=== PATIENT | female | born 1995 | race Caucasian/White ===

== ENCOUNTER 2018-10-05 10:41 | Emergency (ER) | payer OTHER ==
[2018-10-05 10:54] VITALS: BP 121/74
[2018-10-05] MEDS ORDERED: diphenhydrAMINE INJ 50 MG/ML VIAL IM STA (10:59)
--- NOTE | 2018-10-05 11:02 | ED Physician Documentation ---
PD HPI SKIN - Stated complaint Stated Complaint: RASH ALL OVER BODY - Chief complaint Chief Complaint: Allergic Rx - History obtained from History obtained from: Patient, Family () - History of Present Illness Timing - onset: Today Timing - details: Still present Location: [facility] Associated symptoms: Other (itching) Similar symptoms before: Has not had sx before - Additional information Additional information: The patient is a 23-year-old female who presents with rash that she first noticed when she awoke this morning. There is associated pruritus. She denies sore throat or shortness of breath. She denies history of similar symptoms in the past. She has been taking no medications, and is unaware of any change in diet, clothing, detergents, or other substances unusual to her. She did travel to her home in [place] last week where she spent a day at the [employer]. 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 : None HEENT: None Psych: None Musculoskeletal: None Derm: None - Past Surgical History Past Surgical History: No - Present Medications Home Medications: Ambulatory Orders Medication Instructions Recorded Confirmed diphenhydrAMINE [Benadryl] 25 - 50 mg PO Q4-6H PRN #30 capsule 10/05/18 hydrOXYzine pamoate [Hydroxyzine 1 - 2 tab PO Q6H PRN #20 capsule 10/06/18 Pamoate] predniSONE [Deltasone] 60 mg PO DAILY 5 Days tablet 10/06/18 - Allergies Allergies/Adverse Reactions: Allergies Allergy/AdvReac Type Severity Reaction Status Date / Time No Known Drug Allergies Allergy Verified 10/06/18 21:40 - Social History Does the pt smoke?: No Smoking Status: Never smoker PD ED PE NORMAL - Vitals Vital signs reviewed: Yes (normal) - General General: Alert and oriented X 3, Well developed/nourished - HEENT HEENT: Atraumatic, EOMI, Moist mucous membranes, Pharynx benign - Neck Neck: Supple, no meningeal sign, No adenopathy - Cardiac Cardiac: RRR, No murmur - Respiratory Respiratory: No respiratory distress, Clear bilaterally - Abdomen Abdomen: Soft, Non tender - Back Back: No CVA TTP - Derm Derm: Other (Patchy, urticarial rash involving the trunk and all extremities, particularly proximal thighs. There is lesser involvement of the neck and face.) - Extremities Extremities: No edema, No calf tenderness / cord - Neuro Neuro: Alert and oriented X 3, No motor deficit, No sensory deficit Results - Vitals Vitals: Oxygen O2 Source Room air PD MEDICAL DECISION MAKING - ED course Complexity details: re-evaluated patient, considered differential, d/w patient, d/w family ED course: The patient presents with an urticarial type rash. This is most likely due to an immune response to an as yet unknown allergen. Her clinic call presentation does not suggest an acute infectious process. Treatment in the emergency department included administration of diphenhydramine 50 mg orally. I discussed with her and her symptomatic treatment, outpatient follow-up, as well as potentially worrisome signs or symptoms that should prompt reevaluation in the emergency department. Departure - Departure Disposition: 01 Home, Self Care Clinical Impression: Urticaria Condition: Stable Instructions: ED Urticaria Follow-Up: Vonnie Dominguez ARNP [Primary Care Provider] - Prescriptions: diphenhydrAMINE [Benadryl] 25 - 50 mg PO Q4-6H PRN #30 capsule PRN Reason: Itching Comments: You can use Benadryl as prescribed if needed for itching. Follow-up with your primary physician within 1 week. Call to schedule an appointment. Return to the emergency department if you develop increasing rash or itching, difficulty swallowing, shortness of breath, or otherwise worsening symptoms. Discharge Date/Time: 10/05/18 11:52
== END 2018-10-05 11:52 | disposition home or self-care (01) ==
LOC: ED 10:41
DX: L50.9 Urticaria, unspecified (principal)
CPT/HCPCS: 96372; 99283; J1200

== ENCOUNTER 2018-10-06 21:33 | Emergency (ER) | payer OTHER ==
[2018-10-06] MEDS ORDERED: DEXAMETHASONE 10 MG/ML VIAL IVP STA (22:01)
--- NOTE | 2018-10-06 22:06 | ED Physician Documentation ---
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 She does not remember any tick bites but there was a possible mosquito bite. She got back about a week ago. Over the last few days she developed an intensely itchy rash on the face and body. 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 HEENT: None Psych: None Musculoskeletal: None Derm: None - Past Surgical History Past Surgical History: No - Present Medications Home Medications: Ambulatory Orders Medication Instructions Recorded Confirmed diphenhydrAMINE [Benadryl] 25 - 50 mg PO Q4-6H PRN #30 capsule 10/05/18 hydrOXYzine pamoate [Hydroxyzine 1 - 2 tab PO Q6H PRN #20 capsule 10/06/18 Pamoate] predniSONE [Deltasone] 60 mg PO DAILY 5 Days tablet 10/06/18 - Allergies Allergies/Adverse Reactions: Allergies Allergy/AdvReac Type Severity Reaction Status Date / Time No Known Drug Allergies Allergy Verified 10/06/18 21:40 - Social History Does the pt smoke?: No Smoking Status: Never smoker Does the pt drink ETOH?: Yes Does the pt have substance abuse?: No - POLST Patient has POLST: No PD ED PE NORMAL - Vitals Vital signs reviewed: Yes - General General: Alert and oriented X 3, No acute distress - HEENT HEENT: Other (Modest redness of the tonsillar pillars without exudates) - Neck Neck: Supple, no meningeal sign, No bony TTP - Cardiac Cardiac: RRR, No murmur - Respiratory Respiratory: No respiratory distress, Clear bilaterally - Abdomen Abdomen: Normal bowel sounds, Soft, Non tender - Derm Derm: Other (She is a widespread intense erythematous macular rash which is particularly impressive on the legs and face, but is also mildly present on the palms and soles.) - Neuro Neuro: Alert and oriented X 3, Normal speech Results - Vitals Vitals: Vital Signs - 24 hr 10/06/18 10/06/18 10/06/18 21:37 21:47 23:03 Temperature 37.1 C Heart Rate 137 H 118 H 111 H Respiratory 16 14 17 Rate Blood Pressure 99/69 115/78 110/73 O2 Saturation 98 100 99 Oxygen O2 Source Room air - Labs Labs: Laboratory Tests 10/06/18 10/06/18 10/06/18 21:58 22:15 22:15 WBC 13.3 H RBC 4.71 Hgb 14.3 Hct 41.3 MCV 87.7 MCH 30.4 MCHC 34.6 RDW 12.0 Plt Count 213 MPV 12.0 H Neut # (Auto) 11.9 H Lymph # (Auto) 1.1 L [place] # (Auto) 0.2 Eos # (Auto) 0.0 Baso # (Auto) 0.0 Absolute Nucleated RBC 0.00 Nucleated RBC % 0.0 Sodium Potassium Chloride Carbon Dioxide Anion Gap BUN Creatinine Estimated GFR (MDRD) Glucose Calcium Total Bilirubin AST ALT Alkaline Phosphatase Total Protein Albumin Globulin Albumin/Globulin Ratio Lipase Infectious [place] Assay NEGATIVE Group A Strep Rapid Negative 10/06/18 22:15 WBC RBC Hgb Hct MCV MCH MCHC RDW Plt Count MPV Neut # (Auto) Lymph # (Auto) [place] # (Auto) Eos # (Auto) Baso # (Auto) Absolute Nucleated RBC Nucleated RBC % Sodium 135 Potassium 3.2 L Chloride 100 L Carbon Dioxide 23 Anion Gap 12.0 BUN 14 Creatinine 0.8 Estimated GFR (MDRD) 87 L Glucose 142 H Calcium 9.2 Total Bilirubin 1.7 H AST 22 ALT 13 Alkaline Phosphatase 45 Total Protein 7.2 Albumin 4.2 Globulin 3.0 Albumin/Globulin Ratio 1.4 Lipase 23 Infectious [place] Assay Group A Strep Rapid PD MEDICAL DECISION MAKING - ED course ED course: 23-year-old woman presents with intensely itchy rash but associated with some other nonspecific symptoms such as myalgias and a low-grade fever at home. She is afebrile and well-appearing here but the rash is pretty impressive. Bacterial illnesses such as [place] spotted fever are considered, however she is not thrombocytopenic and in this patient's case the rash proceeded other symptoms of illness. Lyme is a possibility but unlikely, will send out serologies. Could be viral, or autoimmune such as adult onset stills disease. We will trial some steroids and she will follow-up closely. Departure - Departure Disposition: Home, Self Care Clinical Impression: Rash and nonspecific skin eruption, Myalgia Condition: Good Record reviewed to determine appropriate education?: Yes Instructions: ED Erythema Multiforme Prescriptions: hydrOXYzine pamoate [Hydroxyzine Pamoate] 1 - 2 tab PO Q6H PRN #20 capsule PRN Reason: Itching predniSONE [Deltasone] 60 mg PO DAILY 5 Days tablet Comments: Return to ED tomorrow if worse for reevaluation If symptoms are persistent recheck with your pcp, consider rheumatology referral.
[2018-10-06 22:32] LABS: BASOPHILS % (AUTO) 0.2 %; EOSINOPHILS % (AUTO) 0.3 %; HGB - HEMOGLOBIN 14.3 g/dL (12.0-16.0); LYMPHOCYTES # (AUTO) 1.1 10^3/uL (1.5-3.5); LYMPHOCYTES % (AUTO) 8.2 %; MEAN CORPUSCULAR HEMOGLOBIN 30.4 pg (27.0-31.0); MEAN CORPUSCULAR HGB CONC 34.6 g/dL (32.0-36.0); MEAN CORPUSCULAR VOLUME 87.7 fL (81.0-99.0); MONOCYTES # (AUTO) 0.2 10^3/uL (0.0-1.0); MONOCYTES % (AUTO) 1.4 %; NEUTROPHILS # (AUTO) 11.9 10^3/uL (1.5-6.6); NEUTROPHILS % (AUTO) 89.7 %; PLT - PLATELET COUNT 213 10^3/uL (130-450); RED BLOOD COUNT 4.71 10^6/uL (4.20-5.40); WHITE BLOOD COUNT 13.3 x10^3/uL (4.8-10.8)
[2018-10-06 22:45] LABS: ALBUMIN 4.2 g/dL (3.2-5.5); ALBUMIN/GLOBULIN RATIO 1.4 (1.0-2.2); BILIRUBIN,TOTAL 1.7 mg/dL (0.2-1.0); CALCIUM 9.2 mg/dL (8.5-10.3); CREATININE 0.8 mg/dL (0.4-1.0); TOTAL PROTEIN 7.2 g/dL (6.7-8.2)
[2018-10-06 23:03] VITALS: BP 110/73
[2018-10-06] MEDS ORDERED: hydrOXYzine PAMOATE 25 MG CAPSULE PO STA (23:08)
[2018-10-10 20:17] LABS: 18 KD (IGG) BAND NON-REACTIVE; 23 KD (IGG) BAND NON-REACTIVE; 23 KD (IGM) BLOT NON-REACTIVE; 28 KD (IGG) BAND NON-REACTIVE; 30 KD (IGG) BAND NON-REACTIVE; 39 KD (IGG) BAND NON-REACTIVE; 39 KD (IGM) BLOT NON-REACTIVE; 41 KD (IGG) BAND REACTIVE; 41 KD (IGM) BLOT NON-REACTIVE; 45 KD (IGG) BAND NON-REACTIVE; 58 KD (IGG) BAND NON-REACTIVE; 66 KD (IGG) BAND NON-REACTIVE; 93 KD (IGG) BAND REACTIVE
== END 2018-10-06 23:22 | disposition home or self-care (01) ==
LOC: ED 21:33
DX: R21 Rash and other nonspecific skin eruption (principal); M79.10 Myalgia, unspecified site
CPT/HCPCS: 36415; 80053; 83690; 85025; 86308; 86617; 87070; 87430; 96374; 99283; 99284; A9270

== ENCOUNTER 2018-10-13 21:41 | Emergency (ER) | payer OTHER ==
[2018-10-13 22:22] LABS: BASOPHILS % (AUTO) 0.3 %; EOSINOPHILS # (AUTO) 0.2 10^3/uL (0.0-0.7); EOSINOPHILS % (AUTO) 2.2 %; HGB - HEMOGLOBIN 13.6 g/dL (12.0-16.0); LYMPHOCYTES # (AUTO) 3.9 10^3/uL (1.5-3.5); LYMPHOCYTES % (AUTO) 45.5 %; MEAN CORPUSCULAR HEMOGLOBIN 29.8 pg (27.0-31.0); MEAN CORPUSCULAR HGB CONC 33.4 g/dL (32.0-36.0); MEAN CORPUSCULAR VOLUME 89.1 fL (81.0-99.0); MONOCYTES # (AUTO) 0.6 10^3/uL (0.0-1.0); MONOCYTES % (AUTO) 6.5 %; NEUTROPHILS # (AUTO) 3.9 10^3/uL (1.5-6.6); PLT - PLATELET COUNT 407 10^3/uL (130-450); RED BLOOD COUNT 4.57 10^6/uL (4.20-5.40); RED CELL DISTRIBUTION WIDTH 12.1 % (12.0-15.0); WHITE BLOOD COUNT 8.6 x10^3/uL (4.8-10.8)
[2018-10-13 22:41] LABS: ALBUMIN 4.1 g/dL (3.2-5.5); ALBUMIN/GLOBULIN RATIO 1.4 (1.0-2.2); ALKALINE PHOSPHATASE 49 IU/L (42-121); ALT ALANINE AMINOTRANSFERASE 12 IU/L (10-60); AST ASPARTATE AMINOTRANSFERASE 12 IU/L (10-42); BILIRUBIN,TOTAL 0.5 mg/dL (0.2-1.0); BUN - BLOOD UREA NITROGEN 13 mg/dL (6-20); CALCIUM 9.2 mg/dL (8.5-10.3); CARBON DIOXIDE - CO2 26 mmol/L (21-32); CHLORIDE 102 mmol/L (101-111); CREATININE 0.7 mg/dL (0.4-1.0); GFR - MDRD 102 (>89); GLUCOSE 101 mg/dL (70-100); LIPASE 38 U/L (22-51); SODIUM 141 mmol/L (135-145); TOTAL PROTEIN 7.1 g/dL (6.7-8.2)
[2018-10-13 22:42] LABS: CRP - C-REACTIVE PROTEIN < 1.0 mg/dL (0-1.0)
[2018-10-13] MEDS ORDERED: predniSONE 20 MG TABLET PO STA (22:48)
[2018-10-13] MEDS ORDERED: DOXEPIN 10 MG CAPSULE PO STA (22:48)
--- NOTE | 2018-10-13 22:51 | ED Physician Documentation ---
PD HPI SKIN - Stated complaint Stated Complaint: FACIAL SWELL/RASH - Chief complaint Chief Complaint: Allergic Rx - History obtained from History obtained from: Patient - History of Present Illness Timing - onset: Today Location: [facility] (23-year-old woman who was seen recently for a rash. Subsequent to that Lyme testing was negative. She actually got pretty much completely better on steroids but now that the steroids are done she had a recurrence today of incredibly itchy rash especially on the arms and posterior thighs and back, with some facial swelling but no respiratory symptoms. 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 HEENT: None Psych: None Musculoskeletal: None Derm: None - Past Surgical History Past Surgical History: No - Present Medications Home Medications: Ambulatory Orders Medication Instructions Recorded Confirmed diphenhydrAMINE [Benadryl] 25 - 50 mg PO Q4-6H PRN #30 capsule 10/05/18 RX: predniSONE [Deltasone] 60 mg PO DAILY 5 Days tablet 10/06/18 hydrOXYzine pamoate [Hydroxyzine 1 - 2 tab PO Q6H PRN #20 capsule 10/06/18 Pamoate] RX: Doxepin HCl 10 mg PO TID PRN #60 capsule 10/13/18 RX: predniSONE [Deltasone] 40 mg PO DAILY #13 tablet 10/13/18 - Allergies Allergies/Adverse Reactions: Allergies Allergy/AdvReac Type Severity Reaction Status Date / Time No Known Drug Allergies Allergy Verified 10/13/18 21:52 - Social History Does the pt smoke?: No Smoking Status: Never smoker Does the pt drink ETOH?: Yes Does the pt have substance abuse?: No - POLST Patient has POLST: No PD ED PE NORMAL - Vitals Vital signs reviewed: Yes - General General: Alert and oriented X 3, No acute distress - HEENT HEENT: Pharynx benign - Derm Derm: Other (Hives with dermatographia especially in the anterior forearms trunk and legs. At this point it spares the palms and soles unlike last time.) - Neuro Neuro: Alert and oriented X 3, Normal speech Results - Vitals Vitals: Vital Signs - 24 hr 10/13/18 10/13/18 21:49 23:15 Temperature 36.9 C 38.6 C H Heart Rate 96 87 Respiratory 16 19 Rate Blood Pressure 138/98 H 130/70 O2 Saturation 100 99 Oxygen O2 Source Room air - Labs Labs: Laboratory Tests 10/13/18 10/13/18 10/13/18 22:15 22:15 22:15 WBC 8.6 RBC 4.57 Hgb 13.6 Hct 40.7 MCV 89.1 MCH 29.8 MCHC 33.4 RDW 12.1 Plt Count 407 MPV 10.0 Neut # (Auto) 3.9 Lymph # (Auto) 3.9 H [place] # (Auto) 0.6 Eos # (Auto) 0.2 Baso # (Auto) 0.0 Absolute Nucleated RBC 0.00 Nucleated RBC % 0.0 ESR 11 Sodium Potassium Chloride Carbon Dioxide Anion Gap BUN Creatinine Estimated GFR (MDRD) Glucose Calcium Total Bilirubin AST ALT Alkaline Phosphatase C-Reactive Protein Total Protein Albumin Globulin Albumin/Globulin Ratio Lipase Rheumatoid Factor NEGATIVE Infectious [place] Assay 10/13/18 10/13/18 22:15 22:15 WBC RBC Hgb Hct MCV MCH MCHC RDW Plt Count MPV Neut # (Auto) Lymph # (Auto) [place] # (Auto) Eos # (Auto) Baso # (Auto) Absolute Nucleated RBC Nucleated RBC % ESR Sodium 141 Potassium 3.7 Chloride 102 Carbon Dioxide 26 Anion Gap 13.0 BUN 13 Creatinine 0.7 Estimated GFR (MDRD) 102 Glucose 101 H Calcium 9.2 Total Bilirubin 0.5 AST 12 ALT 12 Alkaline Phosphatase 49 C-Reactive Protein < 1.0 Total Protein 7.1 Albumin 4.1 Globulin 3.0 Albumin/Globulin Ratio 1.4 Lipase 38 Rheumatoid Factor Infectious [place] Assay NEGATIVE PD MEDICAL DECISION MAKING - ED course ED course: 23-year-old woman with recurrence of hives of unclear etiology. She did respond to steroids so we will start her again but on a lower dose and more of a taper. She did not have much relief with classic antihistamines so we will switch her over to doxepin for the itching. I did send off a rheumatoid factor and CM and I will follow-up with her with the results as I know her personally. Departure - Departure Disposition: 01 Home, Self Care Clinical Impression: Urticaria Condition: Good Record reviewed to determine appropriate education?: Yes Instructions: ED Allergic Reaction General Other Prescriptions: RX: Doxepin HCl 10 mg PO TID PRN #60 capsule PRN Reason: Itching RX: predniSONE [Deltasone] 40 mg PO DAILY #13 tablet Comments: fOLLOWUP WITH ME IN A FEW DAYS FOR RF AND CM RESULTS. CONTINUE TO PURSUE DERMATOLOGY AND IMMUNOLOGY REFERRALS FROM YOUR PCM ON BASE. RETURN IF WORSE Discharge Date/Time: 10/13/18 23:16
[2018-10-13 23:07] LABS: RHEUMATOID FACTOR NEGATIVE (Negative)
[2018-10-13 23:16] VITALS: BP 130/70
[2018-10-17 14:11] LABS: ANA SCREEN NEGATIVE (NEGATIVE)
== END 2018-10-13 23:16 | disposition home or self-care (01) ==
LOC: ED 21:41
DX: L50.9 Urticaria, unspecified (principal)
CPT/HCPCS: 36415; 80053; 83690; 85025; 85651; 86038; 86140; 86308; 86430; 99283; A9270; J7512

== ENCOUNTER 2018-11-23 18:16 | Emergency (ER) | payer OTHER ==
[2018-11-23 18:21] VITALS: BP 121/76
--- NOTE | 2018-11-23 18:35 | ED Physician Documentation ---
History of Present Illness - Stated complaint Stated Complaint: STREP - Chief complaint Chief Complaint: Fever - History obtained from History obtained from: Patient - History of Present Illness Timing: Other (2 days of sore throat, fevers, body aches and chills. 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 HEENT: None Psych: None Musculoskeletal: None Derm: None - Past Surgical History Past Surgical History: Yes - Present Medications Home Medications: Ambulatory Orders Medication Instructions Recorded Confirmed diphenhydrAMINE [Benadryl] 25 - 50 mg PO Q4-6H PRN #30 capsule 10/05/18 hydrOXYzine pamoate [Hydroxyzine 1 - 2 tab PO Q6H PRN #20 capsule 10/06/18 Pamoate] predniSONE [Deltasone] 60 mg PO DAILY 5 Days tablet 10/06/18 Doxepin HCl 10 mg PO TID PRN #60 capsule 10/13/18 predniSONE [Deltasone] 40 mg PO DAILY #13 tablet 10/13/18 Penicillin V Potassium 500 mg PO Q6HR #40 tablet 11/23/18 - Allergies Allergies/Adverse Reactions: Allergies Allergy/AdvReac Type Severity Reaction Status Date / Time No Known Drug Allergies Allergy Verified 10/13/18 21:52 - Social History Does the pt smoke?: No Smoking Status: Never smoker Does the pt drink ETOH?: Yes Does the pt have substance abuse?: No - Immunizations Immunizations are current?: Yes - POLST Patient has POLST: No PD ED PE NORMAL - Vitals Vital signs reviewed: Yes - General General: Alert and oriented X 3, No acute distress - HEENT HEENT: Ears normal, Other (Palatal petechia, moderate anterior cervical adenopathy.) - Neck Neck: Supple, no meningeal sign, No bony TTP - Neuro Neuro: Alert and oriented X 3, Normal speech Results - Vitals Vitals: Vital Signs - 24 hr 11/23/18 18:18 Temperature 38.2 C H Heart Rate 120 H Respiratory 16 Rate Blood Pressure 121/76 O2 Saturation 98 Oxygen O2 Source Room air PD MEDICAL DECISION MAKING - ED course ED course: 3 out of 4 Cent[place] criteria, will treat presumptively. Departure - Departure Disposition: Home, Self Care Clinical Impression: Strep pharyngitis Condition: Good Record reviewed to determine appropriate education?: Yes Instructions: ED Strep Pharyngitis Conf Prescriptions: Penicillin V Potassium 500 mg PO Q6HR #40 tablet Comments: Call your doctor to arrange a follow-up appointment, make the next available appointment. In the interim, return anytime if worse or if new symptoms develop. Push fluids, Tylenol or ibuprofen as needed for pain or fever.
== END 2018-11-23 18:34 | disposition home or self-care (01) ==
LOC: ED 18:16
DX: J02.0 Streptococcal pharyngitis (principal)
CPT/HCPCS: 99282

== ENCOUNTER 2019-11-29 10:49 | Outpatient (CLI) | payer OTHER ==
[2019-11-29 12:23] LABS: HGB - HEMOGLOBIN 11.7 g/dL (12.0-16.0); MEAN CORPUSCULAR HEMOGLOBIN 31.5 pg (27.0-31.0); MEAN CORPUSCULAR HGB CONC 34.1 g/dL (32.0-36.0); MEAN CORPUSCULAR VOLUME 92.5 fL (81.0-99.0); MEAN PLATELET VOLUME 11.8 fL (7.9-10.8); RED BLOOD COUNT 3.71 10^6/uL (4.20-5.40); RED CELL DISTRIBUTION WIDTH 12.8 % (12.0-15.0); WHITE BLOOD COUNT 7.7 x10^3/uL (4.8-10.8)
== END 2019-11-29 10:50 | disposition home or self-care (01) ==
LOC: LAB 10:49
PROVIDERS: ATTEND Advanced Practice Midwife
DX: Z36.89 Encounter for other specified antenatal screening (principal)
CPT/HCPCS: 36415; 82950; 85027

== ENCOUNTER 2019-12-12 09:53 | Outpatient (CLI) | payer OTHER ==
--- NOTE | 2019-12-13 14:23 | Ultrasound Report ---
PROCEDURE: OB F/U or Repeat INDICATIONS: SUPERVISION OF NORMAL OUTSIDE/PRIOR DATING DATA: Last menstrual period (LMP): 05/24/2019. LMP-based estimated date of delivery (JEREMY): 02/28/2020. First dating scan (date and location): 07/31/2019. Estimated date of delivery (JEREMY) from first dating scan: 04/29/2019. TECHNIQUE: Real-time scanning was performed of the fetus, with image documentation and biometric measurements. COMPARISON: OB ultrasound 10/11/2019 FINDINGS: General: A single living intrauterine gestation is present. Presentation: Breech Placenta: Placental position is posterior, without previa. Amniotic fluid index: 14.6 cm, 50th percentile for gestational age. Largest pocket 4.4 cm heart rate: 133 beats per minute. Maternal cervical canal: 4.3 cm long; normal length is 2.5 cm or more. biometrics: Estimated gestational age from initial scan: 28 weeks 6 days Other: four-chamber heart and left ventricular outflow tract is within normal limits. Right jarvis tricular outflow tract is unable to be identified secondary to positioning. IMPRESSION: 1. Single live intrauterine with ultrasound gestational age of 28 weeks 6 days. 2. Four-chamber heart and left ventricular outflow tract is within normal limits. Right ventricular o utflow tract is not well visualized. Recommend interval follow-up as indicated for additional evaluat ion. Reviewed by: Nusrat Leone MD on 12/13/2019 2:21 PM PDT Approved by: Nusrat Leone MD on 12/13/2019 2:21 PM PDT Station ID: [id number]
== END 2019-12-12 09:54 | disposition home or self-care (01) ==
LOC: DI 09:53
PROVIDERS: ATTEND Advanced Practice Midwife
DX: Z34.90 Encounter for supervision of normal pregnancy, unspecified, unspecified trimester (principal)
CPT/HCPCS: 76816

== ENCOUNTER 2019-12-28 19:23 | Outpatient (CLI) | payer OTHER | END 2019-12-28 19:24 | disposition home or self-care (01) | LOC: DI 19:23 | PROVIDERS: ATTEND Nurse Practitioner Obstetrics & Gynecology | DX: Z53.9 Procedure and treatment not carried out, unspecified reason (principal) ==

== ENCOUNTER 2020-01-03 12:24 | Outpatient (CLI) | payer OTHER ==
--- NOTE | 2020-01-03 14:21 | Ultrasound Report ---
PROCEDURE: OB F/U or Repeat INDICATIONS: SCREENING, F/U TO 12/11 OB F/U OUTSIDE/PRIOR DATING DATA: Last menstrual period (LMP): 05/24/2019. LMP-based estimated date of delivery (JEREMY): 02/28/2020. First dating scan (date and location): 07/31/2019. Estimated date of delivery (JEREMY) from first dating scan: 02/28/2020. TECHNIQUE: Real-time scanning was performed of the fetus, with image documentation and biometric measurements. Endovaginal scanning: Not needed COMPARISON: Prior OB ultrasound studies 12/12/2019 and 10/11/2019. FINDINGS: General: A single living intrauterine gestation is present. Presentation: Vertex Placenta: Placental position is posterior, without previa. Amniotic fluid index: 18.3 cm, 74th percentile for gestational age. heart rate: 135 beats per minute. Maternal cervical canal: 3.3 cm long; normal length is 2.5 cm or more. Completion of anatomic survey: Right ventricular outflow tract, aortic arch, where well visualized and complete the anatomic s urvey. Other: Not applicable. IMPRESSION: Completion of anatomic survey, delivered a projected to be centered on 02/28/2020. Normal amniotic fluid volume. Posterior placenta, vertex presentation. Reviewed by: Des Hilton MD on 01/03/2020 2:20 PM PDT Approved by: Des Hilton MD on 01/03/2020 2:20 PM PDT Station ID: [id number]
== END 2020-01-03 12:25 | disposition home or self-care (01) ==
LOC: DI 12:24
PROVIDERS: ATTEND Nurse Practitioner Obstetrics & Gynecology
DX: Z36.89 Encounter for other specified antenatal screening (principal)
CPT/HCPCS: 76816

== ENCOUNTER 2020-02-05 07:00 | Outpatient (CLI) | payer OTHER | END 2020-02-05 23:59 | disposition home or self-care (01) | LOC: LAB.R 07:00 | PROVIDERS: ATTEND Advanced Practice Midwife | DX: Z34.90 Encounter for supervision of normal pregnancy, unspecified, unspecified trimester (principal); Z36.85 Encounter for antenatal screening for Streptococcus B | CPT/HCPCS: 87797 ==

== ENCOUNTER 2020-02-16 17:23 | Outpatient (CLI) | payer OTHER ==
--- NOTE | 2020-02-16 19:16 | Ultrasound Report ---
PROCEDURE: OB F/U or Repeat INDICATIONS: UTERINE SIZE-DATE DISCREPANCY OUTSIDE/PRIOR DATING DATA: Last menstrual period (LMP): 05/24/2019. LMP-based estimated date of delivery (JEREMY): 02/28/2020. First dating scan (date and location): 07/31/2019. See patient chart Estimated date of delivery (JEREMY) from first dating scan: 02/28/2020. TECHNIQUE: Real-time scanning was performed of the fetus, with image documentation and biometric measurements. Endovaginal scanning: Not performed COMPARISON: 01/03/2020, 12/12/2019 FINDINGS: General: A single living intrauterine gestation is present. Presentation: Vertex Placenta: Placental position is fundal, without previa. Amniotic fluid index: 12.9 cm, 48th percentile for gestational age. Largest pocket is 4.8 cm heart rate: 132 beats per minute. Maternal cervical canal: 3.1 cm long; normal length is 2.5 cm or more. biometrics: Biparietal diameter: 9.1 cm, 36 weeks, 5 days Head circumference: 33.1 cm, 37 weeks, 5 days Abdominal circumference: 34.5 cm, 38 weeks, 3 days Femur length: 7.1 cm, 36 weeks, 1 day Estimated gestational age from initial scan: 38 weeks, 2 days Composite gestational age from present scan: 37 weeks, 2 days Estimated weight and percentile: 3266 g, 47th percentile Measurement variability in biometric dating: +/- 10 days from 12-20 weeks gestation, +/- 2 weeks from 20-30 weeks gestation, +/- 3 weeks at 30 weeks gestation or more. Other: Umbilical cord Dopplers are normal ranging from 2.8, 0.9. There is dilatation of the left feta l renal pelvis measuring up to 9 mm. Right renal pelvis is normal. Urinary bladder is nondistended. T race left hydrocele. IMPRESSION: 1. Single living intrauterine with a composite gestational age one week behind the expected gestational age. 2. Estimated weight is at the 47th percentile. 3. Left renal pelviectasis. Follow-up 2-3 days after . 4. Normal amniotic fluid volume. Reviewed by: Charlene Hughes MD on 02/16/2020 7:15 PM PST Approved by: Charlene Hughes MD on 02/16/2020 7:15 PM PST Station ID: [id number]
== END 2020-02-16 17:24 | disposition home or self-care (01) ==
LOC: DI 17:23
PROVIDERS: ATTEND Nurse Practitioner Obstetrics & Gynecology
DX: O26.843 Uterine size-date discrepancy, third trimester (principal); Z3A.38 38 weeks gestation of pregnancy
CPT/HCPCS: 76816

== ENCOUNTER 2020-03-02 10:38 | Outpatient (CLI) | payer OTHER | END 2020-03-02 10:39 | disposition home or self-care (01) | LOC: LAB 10:38 | PROVIDERS: ATTEND Nurse Practitioner Obstetrics & Gynecology | DX: Z34.90 Encounter for supervision of normal pregnancy, unspecified, unspecified trimester (principal); Z36.89 Encounter for other specified antenatal screening; Z20.828 Contact with and (suspected) exposure to other viral communicable diseases ==

== ENCOUNTER 2020-03-06 07:16 | Inpatient (IN) | payer OTHER ==
[2020-03-06] MEDS ORDERED: TRANEXAMIC ACID 1,000 MG in SODIUM CHLORIDE 0.9% 100ML 100 ML IV PRN (09:07)
[2020-03-06] MEDS ORDERED: OXYTOCIN/SODIUM CHLORIDE 500 ML IV PRN (09:07)
[2020-03-06] MEDS ORDERED: OXYTOCIN 10 UNIT/ML VIAL IM PRN (09:07)
[2020-03-06] MEDS ORDERED: LIDOCAINE-MPF 1% 30 ML VIAL ID PRN (09:07)
[2020-03-06] MEDS ORDERED: SODIUM CHLORIDE FLUSH 0.9% 10 ML SYRINGE IVP PRN (09:07)
[2020-03-06] MEDS ORDERED: ONDANSETRON 4 MG/2 ML VIAL IVP PRN ×2 (09:07→18:05)
[2020-03-06] MEDS ORDERED: CARBOPROST TROMETHAMINE 250 MCG/ML AMP IM PRN (09:07)
[2020-03-06] MEDS ORDERED: miSOPROStoL 200 MCG TABLET BC PRN (09:07)
[2020-03-06] MEDS ORDERED: METHYLERGONOVINE 0.2 MG/ML VIAL IM PRN (09:07)
[2020-03-06 09:37] LABS: BASOPHILS # (AUTO) 0.1 10^3/uL (0.0-0.1); BASOPHILS % (AUTO) 0.7 %; EOSINOPHILS # (AUTO) 0.1 10^3/uL (0.0-0.7); HGB - HEMOGLOBIN 13.2 g/dL (12.0-16.0); LYMPHOCYTES # (AUTO) 1.8 10^3/uL (1.5-3.5); LYMPHOCYTES % (AUTO) 24.9 %; MEAN CORPUSCULAR HEMOGLOBIN 32.4 pg (27.0-31.0); MEAN CORPUSCULAR HGB CONC 35.1 g/dL (32.0-36.0); MEAN CORPUSCULAR VOLUME 92.2 fL (81.0-99.0); MONOCYTES # (AUTO) 0.5 10^3/uL (0.0-1.0); MONOCYTES % (AUTO) 6.9 %; NEUTROPHILS # (AUTO) 4.7 10^3/uL (1.5-6.6); NEUTROPHILS % (AUTO) 65.9 %; PLT - PLATELET COUNT 145 10^3/uL (130-450); RED BLOOD COUNT 4.08 10^6/uL (4.20-5.40); RED CELL DISTRIBUTION WIDTH 12.6 % (12.0-15.0); WHITE BLOOD COUNT 7.1 x10^3/uL (4.8-10.8)
--- NOTE | 2020-03-06 10:21 | HISTORY & PHYSICAL EXAMINATION ---
Admit History - Visit Reason Visit Reason: Other - : 1 Parity: 0 Premature: 0 Ectopic: 0 : 0 Care: positive: [facility] Risk/History: positive: None Complications This : positive: Other Smoking Status: Never smoker - Mother's Labs Mother's Blood Type: positive: B Mother's RH: positive: Positive GBS: positive: Group B Step Negative Rubella Status: positive: Immune Meds/Allgy - Home Medications Home Medications: Ambulatory Orders Medication Instructions Recorded Confirmed diphenhydrAMINE [Benadryl] 25 - 50 mg PO Q4-6H PRN #30 capsule 10/05/18 hydrOXYzine pamoate [Hydroxyzine 1 - 2 tab PO Q6H PRN #20 capsule 10/06/18 Pamoate] predniSONE [Deltasone] 60 mg PO DAILY 5 Days tablet 10/06/18 Doxepin HCl 10 mg PO TID PRN #60 capsule 10/13/18 predniSONE [Deltasone] 40 mg PO DAILY #13 tablet 10/13/18 Penicillin V Potassium 500 mg PO Q6HR #40 tablet 11/23/18 - Allergies Allergies/Adverse Reactions: Allergies Allergy/AdvReac Type Severity Reaction Status Date / Time No Known Drug Allergies Allergy Verified 10/13/18 21:52 Review of Systems - Constitutional Constitutional: denies: Fatigue, Fever, Chills - Eyes Eyes: denies: Blurred vision, Spots in vision, Dipolpia - Cardiovascular Cariovascular: denies: Irregular heart rate, Chest pain, Edema - Respiratory Respiratory: denies: Cough, SOB at rest - Gastrointestinal Gastrointestinal: denies: Constipation, Diarrhea, Change in bowel habits - Integumentary Integumentary: denies: Rash, Pruritis - Neurological Neurological: denies: Headache Physical - Abdominal Exam Vital Signs: Temp Pulse Resp BP Pulse Ox 36.9 C 03/06/20 07:31 Contraction Frequency (min/apart): intermittent Contraction Intensity: positive: Mild Uterine Resting Tone: positive: Soft - Monitoring Heart Rate Baseline: 120 Strip Review: positive: Category I - Presentation Presentation: positive: Vertex - Vaginal Exam Membranes: positive: Membranes intact Dilation (in cm): 1 Effacement (%): 70 Station: positive: -3 Cervical Position: positive: Posterior - Speculum Exam Speculum Exam Performed: positive: No Plan for Labor - Plan For Labor I expect patient to be DC'd or transferred within 96 hours.: Yes Plan for Labor: HPI: Destiny is a 24yo @ 41.0wks gestation by LMP c/w 9.1wk U/S. She presents to [facility] for induction of labor secondary to post dates . She denies vaginal bleeding or leakage of fluid and reports +FM. She states she has experienced intermittent lower abdominal, menstrual-like cramping but denies anything overly uncomfortable and had not perceived these cramps as contractions. She was surprised to see the cramping picked up via tocometry as contractions. She had a membrane sweep in the office last week on Monday and again 2 days ago. She states she felt slightly crampy afterwards but overall did not experience labor symptoms. She has been a patient of [facility] since her transfer of care from [facility] at 24wks gestation. She has received adequate and consistent care through the duration of her . She will be admitted to [facility] for induction of labor secondary to post-dates . Dating criteria: LMP 05/18/2019 Initial ultrasound at 9.1wks - agrees Serial exams - agree OB Hx: G1: Current Medications: PNV Allergies: NKDA PMHx: no significant Surgical Hx: Clavicle repair (2007) Social Hx: Never smoker. No ETOH or IVDA. 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 Family Hx: NH (PGF); Brain cancer (MGM) course: Initial U/S: at 9.1wks c/w conception date and LMP for JEREMY of 02/28/2020 B pos/Rubella immune VZV non immune- got vaccinations as child. Will offer pp in hospital and at 6wks pp visit. Gentic testing: Serum integrated screen - negative; CF negative FAS: Posterior placenta. 3VC. Right and left outflow tracts not well visualized. EFW 75% 12/12/2019 f/u incomplete views of heart - addition f/u ordered 01/03/2020 f/u for incomplete view of cardiac structures -WNL. 02/16/2020 Growth- efw 47%, ANGIE 48%, left pelviectasis, follow up 2-3day pp Glucola : 131 TDAP 12/17/2019 FLU offered- will get with employee demarco GBS at 36.5wks- POSITIVE HSV: denies self and partner Breast pump Rx : provided MOD: . Husb: Carlos. Gender: Bryan! Dad would like to announce; "wait and see" approach to pain management. . girl??? pp contraception: husb will be deployed two weeks after delivery. Usually uses condoms PAP: 04/26/2018- neg Physical Exam: Normocephalic, atraumatic Heart RRR w/o M/G/R Lungs CTAB Abdomen gravid, soft, nontender EFW 3800g FHR baseline 120s, moderate variability, + accels, no decels Contractions appreciated via tocometry palate mild intermittently SVE 1/70/-3, posterior. Vertex. Rhodes cervical ripening balloon placed. Uterine balloon inflated with 60cc of normal saline and vaginal balloon inflated with 60cc of normal saline. Bilateral LE's trace edema. Mood is good. Carlos supportive at the bedside. Assessment: 24yo @ 41.0wks gestation by LMP c/w 9.1wk U/S Post-dates GBS negative FHR Category I Plan: Rhodes cervical ripening balloon placed. Will leave in place x 12 hours or until spontaneously expelled. Consider AROM vs pitocin with removal or expulsion of cervical ripening balloon. Intermittent monitoring. Jacuzzi PRN. Nitrous oxide PRN. Epidural per maternal request. Anticipate . Reviewed plan of care with pt, , and labor RN at the bedside who are in agreement with above plan and deny further questions or concerns at this time.
--- NOTE | 2020-03-06 11:29 | PROVIDER PROGRESS NOTE ---
Labor Progress Note - Uterine Monitoring Uterine Monitoring Mode: positive: External toco Contraction Frequency (min/apart): 2-4 Contraction Intensity: positive: Mild to moderate Uterine Resting Tone: positive: Soft - Monitoring Monitor Mode: positive: External ultrasound Heart Rate Baseline: 130 Heart Rate Variability: positive: Moderate (6-25 bmp) Accelerations: positive: Present, 15x15 Decelerations: positive: None Strip Review: positive: Category I - Vaginal Exam Dilation (in cm): 3 Effacement (%): 80 Station: -1 Cervical Position: Posterior - Labor Progress Note Labor Progress Note/Additional Text: S: Feeling uncomfortable with contractions while the seaman balloon was in place. She states she felt increased discomfort and felt like she needed to have a bowel movement but when she was sitting on the toilet her cervical ripening balloon was spontaneously expelled. She reports mucousy, blood-tinged discharge on the balloon but has since noticed "brown-tinged fluid" running down her leg. She reports since the balloon was expelled her discomfort with contractions has slightly improved. She denies vaginal bleeding. She requests information about her options for pain management which we reviewed. She wishes to avoid an epidural but states the contractions while she was in the tub were very uncomfortable and she is not sure how long she will be able to have more of those. Carlos supportive at the bedside. O: FHR baseline 130s, moderate variability, + accels, no decels Contractions palpate mild-moderate every 2-4 minutes with soft resting tone SVE 3/80/-1, posterior. Vertex. Suspected SROM at 2100-monitor continued leakage for color to r/o meconium A: 24yo @ 41.0wks gestation by LMP c/w 9/1wk U/S post-dates with IOL secondary to post-dates. GBS POSITIVE FHR Category I P: Expectant management x 2 hours - if contraction pattern is regular with increased intensity and frequency, will expectantly manage. If contractions space out or are not increasing in intensity, will initiate pitocin with titration per protocol. Intermittent monitoring until initiation of pitocin is appropriate. Monitor continued leakage for color to r/o meconium Initiate IPAP now for GBS prophylaxis. Jacuzzi PRN. Nitrous oxide PRN. Epidural per maternal request. Anticipate . Reviewed plan of care with pt, , and labor RN at the bedside who are all in agreement with above plan and deny further questions or concerns at this time.
[2020-03-06] MEDS ORDERED: AMPICILLIN 2 GM in SODIUM CHLORIDE 0.9% MINIBAG 100 ML IV ONE (12:00)
[2020-03-06] MEDS: LACTATED RINGERS 1,000 ML IV SCH ×2 (12:03→19:59)
[2020-03-06] MEDS ORDERED: OXYTOCIN/SODIUM CHLORIDE 500 ML IV SCH (14:00)
--- NOTE | 2020-03-06 15:34 | ANESTHESIA ---
Pre-Anesthesia VS, & Labs - Diagnosis active labor - Procedure Labor epidural Vital Signs: Temp Pulse Resp BP Pulse Ox 36.9 C 03/06/20 07:31 Height: 5 ft 6 in Weight (kg): 78.925 kg Body Mass Index: 28.0 BMI Classification: Overweight - Is Patient ?: Yes - Lab Results Current Lab Results: Laboratory Tests 03/06/20 08:00: Blood Type B POSITIVE, Antibody Screen NEGATIVE 03/06/20 08:00: WBC 7.1, RBC 4.08 L, Hgb 13.2, Hct 37.6, MCV 92.2, MCH 32.4 H, MCHC 35.1, RDW 12.6, Plt Count 145, MPV 14.0 H, Neut # (Auto) 4.7, Lymph # (Auto) 1.8, Lamb # (Auto) 0.5, Eos # (Auto) 0.1, Baso # (Auto) 0.1, Absolute Nucleated RBC 0.00, Nucleated RBC % 0.0 Lab results reviewed: Yes Fish Bones: 03/06/20 08:00 Home Medications and Allergies Active Medications Carboprost Tromethamine (Carboprost Tromethamine 250 Mcg/Ml Amp) 250 mcg IM Q15M PRN PRN Reason: Step 4: Hemorrhage protocol Stop: 03/11/20 09:09 Lactated Ringer's (Lr) 1,000 mls @ 100 mls/hr IV .Q10H BILLY Last Infusion: 03/06/20 14:14 Dose: 100 mls/hr Documented by: Oxytocin/Sodium Chloride (Pitocin/Sodium Chloride) 500 mls @ 999 mls/hr IV PRN PRN; Protocol PRN Reason: POST- HEMORR PREVENTION Stop: 03/11/20 09:09 Tranexamic Acid 1,000 mg/ (Sodium Chloride) 110 mls @ 660 mls/hr IV .ONCE PRN PRN Reason: EBL >1200mL and within 3hr Stop: 03/11/20 09:09 Ampicillin Sodium 1 gm/ Sodium (Chloride) 100 mls @ 200 mls/hr IV Q4H BILLY Oxytocin/Sodium Chloride (Pitocin/Sodium Chloride) 500 mls @ 1 mls/hr IV TITR BILLY; Protocol Last Admin: 03/06/20 14:14 Dose: 1 milliunit/min, 1 mls/hr Documented by: Lidocaine HCl (Lidocaine-Mpf 1% 30 Ml Vial) 30 ml ID .ONCE PRN PRN Reason: PERINEAL REPAIR Stop: 03/11/20 09:09 Methylergonovine Maleate (Methylergonovine 0.2 Mg/Ml Vial) 0.2 mg IM .ONCE PRN PRN Reason: Step 2: Hemorrhage protocol Stop: 03/11/20 09:09 Misoprostol (Misoprostol 200 Mcg Tablet) 800 mcg BC .ONCE PRN PRN Reason: Step 3: Hemorrhage protocol Stop: 03/11/20 09:09 Ondansetron HCl (Ondansetron 4 Mg/2 Ml Vial) 4 mg IVP Q4HR PRN PRN Reason: Nausea / Vomiting Oxytocin (Oxytocin 10 Unit/Ml Vial) 10 unit IM .ONCE PRN PRN Reason: Step one: If no IV access Stop: 03/11/20 09:09 Sodium Chloride (Sodium Chloride Flush 0.9% 10 Ml Syringe) 10 ml IVP 0100,0900,1700 BILLY Sodium Chloride (Sodium Chloride Flush 0.9% 10 Ml Syringe) 10 ml IVP PRN PRN PRN Reason: NEEDED PER PROVIDER ORDERS Allergies/Adverse Reactions: Allergies Allergy/AdvReac Type Severity Reaction Status Date / Time No Known Drug Allergies Allergy Verified 10/13/18 21:52 Anes History & Medical History - Anesthetic History Anesthesia Complications: reports: No previous complications Family history of Anesthesia Complications: Denies Family history of Malignant Hyperthermia: Denies - Medical History Cardiovascular: reports: None Pulmonary: reports: None Gastrointestinal: reports: None Urinary: reports: None Neuro: reports: None Musculoskeletal: reports: None Endocrine/Autoimmune: reports: None Blood Disorders: reports: None Skin: reports: None Smoking Status: Never smoker - Obstetrical History : 1 Parity: 0 Events: positive: None Complications: positive: Other Exam General: Alert, Oriented x3, Cooperative, No acute distress Plan Anesthesia Type: Epidural Consent for Procedure(s) Verified and Reviewed: Yes Code Status: Attempt Resuscitation ASA classification: 2-Mild systemic disease Is this case an emergency?: No
[2020-03-06] MEDS: AMPICILLIN 1 GM in SODIUM CHLORIDE 0.9% MINIBAG 100 ML IV SCH ×2 (16:00→19:59)
--- NOTE | 2020-03-06 16:28 | PROVIDER PROGRESS NOTE ---
Labor Progress Note - Uterine Monitoring Uterine Monitoring Mode: positive: External toco Contraction Frequency (min/apart): 2-5 Contraction Intensity: positive: Moderate Uterine Resting Tone: positive: Soft - Monitoring Monitor Mode: positive: External ultrasound Heart Rate Baseline: 120 Heart Rate Variability: positive: Moderate (6-25 bmp) Accelerations: positive: Present, 15x15 Decelerations: positive: None Strip Review: positive: Category I - Vaginal Exam Dilation (in cm): 5 Effacement (%): 80 Station: -1 Cervical Position: Posterior - Labor Progress Note Labor Progress Note/Additional Text: S: Feeling every contraction but is able to talk through them however states they "curl my toes". She reports they are not as strong as the contractions were previously when the cervical ripening balloon was in place. Reports continued leakage of amniotic fluid which has been light pink tinged on occasion and no longer seems to have any brown or green discoloration as was the concern with initial leakage. She denies ROLON, visual disturbances, RUQ or epigastric pain. No edema. Carlos supportive at the bedside. O: BP 129/91 currently. Since approximately 1545 her BPs have been in the elevated range. She denies symptoms. HR 86, O2 100. T 37.0 FHR baseline 120s, moderate variability, + accels, no decels Contractions palpate moderate every 2-4 minutes with soft resting tone SVE 5/80/-1, posterior, medium, vertex. S/p 1 loading dose of ampicillin A: 24yo @ 41.0wks gestation by LMP c/w 9.1wk U/S Elevated BP without diagnosis of HTN GBS positive FHR Category I P: Continue IOL induction of labor with pitocin and titrate per protocol. Continue IPAP for GBS prophylaxis PIH labs ordered secondary to elevated BPs Continuous monitoring Jacuzzi PRN. Nitrous oxide PRN. Epidural per maternal request. Anticipate .
[2020-03-06 17:10] LABS: HGB - HEMOGLOBIN 13.6 g/dL (12.0-16.0); MEAN CORPUSCULAR HEMOGLOBIN 32.2 pg (27.0-31.0); MEAN CORPUSCULAR HGB CONC 34.6 g/dL (32.0-36.0); MEAN CORPUSCULAR VOLUME 92.9 fL (81.0-99.0); MEAN PLATELET VOLUME 13.4 fL (7.9-10.8); RED BLOOD COUNT 4.23 10^6/uL (4.20-5.40); RED CELL DISTRIBUTION WIDTH 12.6 % (12.0-15.0); WHITE BLOOD COUNT 10.5 x10^3/uL (4.8-10.8)
[2020-03-06 17:19] LABS: ALBUMIN 3.5 g/dL (3.2-5.5); BILIRUBIN,TOTAL 0.6 mg/dL (0.2-1.0); CALCIUM 9.2 mg/dL (8.5-10.3); CREATININE 0.6 mg/dL (0.4-1.0); TOTAL PROTEIN 6.9 g/dL (6.7-8.2)
[2020-03-06] MEDS ORDERED: fentaNYL 100 MCG/2 ML VIAL ONE ×2 (17:32→23:04)
[2020-03-06] MEDS ORDERED: ROPIVACAINE 0.2% PF 20ML VIAL ONE (17:32)
[2020-03-06] MEDS ORDERED: ROPIVACAINE 0.2% 200 MG/100 ML BAG EP ONE (17:32)
[2020-03-06] MEDS: SODIUM CHLORIDE FLUSH 0.9% 10 ML SYRINGE IVP SCH (17:57)
[2020-03-06] MEDS ORDERED: NALBUPHINE 10 MG/ML AMP IVP PRN (18:05)
[2020-03-06] MEDS ORDERED: ePHEDrine 50 MG/ML VIAL IVP PRN (18:05)
[2020-03-06] MEDS ORDERED: ROPIVACAINE 0.2% 200 MG/100 ML BAG EP PRN ×3 (18:05→23:15)
[2020-03-06] MEDS ORDERED: NALOXONE 0.4 MG/ML VIAL IVP PRN (18:05)
[2020-03-06] MEDS ORDERED: METOCLOPRAMIDE 10 MG/2 ML VIAL IVP PRN (18:05)
[2020-03-06] MEDS ORDERED: diphenhydrAMINE INJ 50 MG/ML VIAL IVP PRN (18:05)
[2020-03-06 19:15] LABS: CREATININE,URINE 23.3 mg/dL; TOTAL PROTEIN,URINE TIMED < 6 mg/dL
--- NOTE | 2020-03-06 21:32 | PROVIDER PROGRESS NOTE ---
Labor Progress Note - Uterine Monitoring Uterine Monitoring Mode: positive: External toco Contraction Frequency (min/apart): 2-3 Contraction Intensity: positive: Moderate Uterine Resting Tone: positive: Soft - Monitoring Monitor Mode: positive: External ultrasound Heart Rate Baseline: 125 Heart Rate Variability: positive: Moderate (6-25 bmp) Accelerations: positive: Present, 15x15 Decelerations: positive: None Strip Review: positive: Category I - Vaginal Exam Dilation (in cm): 7 Effacement (%): 90 Station: 0 Cervical Position: Anterior - Labor Progress Note Labor Progress Note/Additional Text: S: Feeling comfortable in bed with epidural. Rotating on peanut ball. Laying on left side upon arrival and rotated to right side lying following SVE. She states she is doing well. She has been able to get some rest. Her PIH labs were WNL and she continued to deny ROLON, visual disturbances, RUQ or epigastric pain. Since placement of her epidural her BPs have been normotensive and pt suspected they may have been elevated secondary to pain - we discussed that in the absence of symptoms and normal labs, in addition to only brief period of mildly elevated BPs, this is likely. Her is supportive at the bedside. O: BP 102/61, HR 77, O2 99, T 37.6 FHR baseline 125, moderate variability, + accels, no decels Contractions palpate moderate every 2-3 minutes lasting 60-90 seconds with soft resting tone. SVE 7/90/0, soft. Vertex. Pitocin @ 6mU/mL SROM x 10 hours s/p 3 doses of IPAP for GBS prophylaxis per protocol A: 24yo @ 41.0wks gestation by LMP c/w 9.1wk U/S Post-dates - IOL secondarily GBS positive FHR Category I P: Continuous monitoring Continue pitocin IOL with titration per protocol IPAP per protocol for GBS prophylaxis Continue rotation in bed with peanut ball Maintain adequate anesthesia with epidural Anticipate Repeat SVE in 6 hours or sooner PRN.
[2020-03-07] MEDS: AMPICILLIN 1 GM in SODIUM CHLORIDE 0.9% MINIBAG 100 ML IV SCH ×3 (00:01→08:03)
[2020-03-07] MEDS ORDERED: ROPIVACAINE 0.2% 200 MG/100 ML BAG EP PRN ×2 (01:57→04:58)
--- NOTE | 2020-03-07 02:34 | PROVIDER PROGRESS NOTE ---
Labor Progress Note - Uterine Monitoring Uterine Monitoring Mode: positive: External toco Contraction Frequency (min/apart): 2-4 Contraction Intensity: positive: Moderate Uterine Resting Tone: positive: Soft - Monitoring Monitor Mode: positive: External ultrasound Heart Rate Baseline: 140 Heart Rate Variability: positive: Moderate (6-25 bmp) Accelerations: positive: Present, 15x15 Decelerations: positive: None Strip Review: positive: Category I - Vaginal Exam Dilation (in cm): 6 Effacement (%): 95 Station: 0 Cervical Position: Anterior - Labor Progress Note Labor Progress Note/Additional Text: S: Patient feeling comfortable at this time with her epidural. Anesthesia had been called back to the bedside several times and the most recent time the patient's epidural required replacement in attempt to achieve effective pain relief with success. O: BP 107/64, HR 77, O2 99, T36.9 FHR baseline 140s, moderate variability with intermittent periods of minimal variability, + accels, late decelerations with episode of hypotension following placement of epidural. Since patient's blood pressure is back to normotensive she has not had any further late decelerations. FHR responded well to fluid bolus, position change, and correction of BP with ephedrine. Contractions palpate moderate every 2-4 minutes lasting 40-80 seconds with soft resting tone SVE 6/95/0, soft. Small amount of caput noted. SROM x 16 hours Pitocin @ 8mU/mL IUPC placed secondary to lack of progress while o A: 24yo @ 41.1wks gestation by LMP c/w 9.1wk U/S Postdates - IOL secondarily GBS positive - s/p 4 doses of ampicillin P: Continuous monitoring Continue pitocin with titration per protocol Encouraged rotation in bed on peanut ball. Anticipate
[2020-03-07] MEDS: LACTATED RINGERS 1,000 ML IV SCH (04:30)
[2020-03-07] MEDS ORDERED: fentaNYL 100 MCG/2 ML VIAL ONE (05:21)
[2020-03-07] MEDS ORDERED: OXYTOCIN 10 UNIT/ML VIAL ONE (09:01)
[2020-03-07] MEDS ORDERED: WITCH HAZEL/GLYCERIN 1 PAD TOP PRN (10:10)
[2020-03-07] MEDS ORDERED: HYDROCORTISONE 1% CREAM 28 GM TUBE PR PRN (10:10)
[2020-03-07] MEDS ORDERED: ACETAMINOPHEN 1,000 MG/100 ML 100 ML IV ONE (10:30)
--- NOTE | 2020-03-07 10:30 | DELIVERY NOTE ---
Delivery Note - Labor Labor: positive: Induced by oxytocin - Infant Delivery Method Delivery Method: positive: Spontaneous vaginal delivery - Cervical Ripening Method Cervical Ripening Method: positive: Balloon device - Presentation Presentation: positive: Vertex, ZHANNA - left occiput anterior - Nuchal Cord Nuchal Cord: positive: None - Episiotomy Type Episiotomy Type: positive: None - Laceration Laceration: positive: 2nd degree, Vaginal - Suture Suture Type: positive: Vicryl Suture Size: positive: 2-0 - Delivery Outcome Delivery Outcome: positive: Livebirth - : positive: Placed in direct skin contact with mother, Stimulated, Warmed, [place] used sex: positive: Male - Cord Cord: positive: 3 vessels - Placenta Placenta: positive: Intact, Spontaneous - Estimated Blood Loss Estimated Blood Loss (in cc): 400 - Post Delivery Events Post Delivery Events: positive: No post delivery events - Delivery Comments (Free Text/Narrative) Delivery Comments (Free Text/Narrative): Labor: This 24yo @ 41.1wks gestation by LMP c/w 9.1wk U/S presented on 03/06/2020 for medical induction of labor secondary to postdates . Upon arrival her cervix was noted to be 1/50/-3, posterior and vertex. A seaman cervical ripening balloon was placed and spontaneously expelled after 3 hours. SROM occurred simultaneously at 1110 and was noted to be a moderate amount of clear fluid. Pitocin initiated via IV and titrated per protocol for induction of labor for a maximum infusion rate of 16mU/mL. IUPC placed secondary to slow progression of dilation. Epidural placed per maternal request and provided adequate pain relief x 3 hours. Patient had inadequate pain relief x an addition 3 hours before anesthesia was called back to place new epidural. This epidural provided the patient with 3 hours of adequate pain relief followed by significant increase in discomfort which was not able to be relieved with epidural anesthesia. She did use patient administered nitrous oxide which provided some relief. Anesthesia was called back for a third time to evaluate and was able to improve but not eliminate the patient's pain. FHR pattern demonstrated a Category I pattern throughout labor. Pt was noted to be GBS positive and received 4 total does of IV ampicillin for adequate prophylaxis. Pa tient progressed to c/c/+1 with onset of spontaneous pushing effort at 0557. weight caller physician noted of pushing effort x 1 hour and comfortable with continuation of spontaneous pushing at this time as FHR continues to remain Category I pattern. Total time of second stage 3 hrs and 3 min. : Normal of viable male on 03/07/2020 at 0906. No nuchal cord. The was placed on maternal abdomen, stimulated, dried, and placed skin to skin. 's were 7/9 at 1 and 5 min respectively. Pitocin administered via IV for hemostasis. The umbilical cord was allowed to stop pulsating at which time it was doubly clamped by CNM and cut by FOB. 3VC. Cord blood was obtained. Fundal massage and gentle cord traction applied for active management of the third stage. Placenta delivered spontaneously and intact at 0911. Secondary to brisk bleeding, Methergine 0.2mg IM administered and 600mcg BC misoprostol given with adequate response. A straight catheter was inserted to empty bladder of 40 0mL of urine and following these interventions hemostasis was achieved. EBL 400mL. Fourth stage: Uterine fundus firm and there is no excessive bleeding. The perineum, vagina, and cervix were inspected and noted to have 2nd degree vaginal laceration with minor left labial extension which was repaired using a 2-[address]-1 needle, in standard fashion and under sterile conditions. Tissues well approximated. initiated. Family bonding well. Both mother and baby were left in stable condition.
[2020-03-07] MEDS ORDERED: AMPICILLIN/SULBACTAM 3 GM in SODIUM CHLORIDE 0.9% MINIBAG 100 ML IV ONE (11:33)
[2020-03-07] MEDS: IBUPROFEN 800 MG TABLET PO SCH ×2 (15:27→23:49)
--- NOTE | 2020-03-07 17:23 | PROVIDER PROGRESS NOTE ---
Subjective - Subjective Subjective: S: Feeling significantly better. She is ambulating without difficulty. Has been up to the bathroom several times without difficulty and is urinating without difficulty. Immediately she developed a fever. She felt body aches and chills and experienced tachycardia. She states she was talking to her friend from home on the phone and started to feel slightly less achy after the IV tylenol however her temperature continued to elevate. Following the IV antibiotics and tylenol she feels her body aches and chills have resolved. She denies uterine tenderness. She just got out of the shower which she states felt really nice. She has not been able to get a good nap in yet but plans to eat her dinner and then do so. She is struggling slightly with and baby is not wanting to stay latched for prolonged periods of time. 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 O: BP 117/69, HR 91, RR 18; T 36.8 Heart RRR w/o M/G/R, lungs CTAB, abdomen soft and nontender with fundus firm at U. S/p 3g Unasyn IV x once with resolution of fever and maternal symptoms A: 24yo -->P1 s/p TSVD of viable male infant 2nd degree perineal laceration - intact fever (39.2C [102.6F]) with maternal tachycardia- does not meet criteria for diagnosis for endometritis. - no uterine tenderness - no purulent discharge - treated with Unasyn 3gm x once and IV tylenol with adequate response and complete resolution of maternal fever and tachycardia. P: Continue routine pp care and medications. Reviewed plan of care with patient and at the bedside who deny questions or concerns at this time and verbalized understanding. Objective - Vital Signs/Intake & Output Vital Signs: Vital Signs x48h Temp Pulse Resp BP Pulse Ox 03/07/20 16:00 36.8 C 91 18 117/69 98 03/07/20 11:30 39.2 C H Intake & Output: Intake & Output 03/04/20 03/05/20 03/06/20 03/07/20 23:59 23:59 23:59 23:59 Intake Total 8547.525 3657.667 Output Total 1900 1825 Balance -600.000 726.667 - Lab Results Fish Bones: 03/06/20 16:45 03/06/20 16:45 Other Labs: Lab Results x24hrs 03/06/20 03/06/20 03/06/20 Range/Units 18:45 16:45 16:45 WBC 10.5 (4.8-10.8) x10^3/uL RBC 4.23 (4.20-5.40) 10^6/uL Hgb 13.6 (12.0-16.0) g/dL Hct 39.3 (37.0-47.0) % MCV 92.9 (81.0-99.0) fL MCH 32.2 H (27.0-31.0) pg MCHC 34.6 (32.0-36.0) g/dL RDW 12.6 (12.0-15.0) % Plt Count 145 (130-450) 10^3/uL MPV 13.4 H (7.9-10.8) fL Sodium 137 (135-145) mmol/L Potassium 3.6 (3.5-5.0) mmol/L Chloride 102 (101-111) mmol/L Carbon Dioxide 25 (21-32) mmol/L Anion Gap 10.0 (6-13) BUN 7 (6-20) mg/dL Creatinine 0.6 (0.4-1.0) mg/dL Estimated GFR (MDRD) 121 (>89) Glucose 89 (70-100) mg/dL Uric Acid 5.0 (2.6-7.2) mg/dL Calcium 9.2 (8.5-10.3) mg/dL Total Bilirubin 0.6 (0.2-1.0) mg/dL AST 21 (10-42) IU/L ALT 22 (10-60) IU/L Alkaline Phosphatase 189 H (42-121) IU/L Total Protein 6.9 (6.7-8.2) g/dL Albumin 3.5 (3.2-5.5) g/dL Globulin 3.4 (2.1-4.2) g/dL Albumin/Globulin Ratio 1.0 (1.0-2.2) Urine Creatinine 23.3 mg/dL Ur Total Protein Timed < 6 mg/dL Protein/Creatinin Ratio Not Reportable
[2020-03-07] MEDS: ACETAMINOPHEN 500 MG TABLET PO SCH (20:20)
[2020-03-07] MEDS: DOCUSATE SODIUM 100 MG CAPSULE PO SCH (20:21)
[2020-03-07] MEDS: SODIUM CHLORIDE FLUSH 0.9% 10 ML SYRINGE IVP SCH (23:49)
[2020-03-08 06:08] LABS: HGB - HEMOGLOBIN 11.4 g/dL (12.0-16.0); MEAN CORPUSCULAR HEMOGLOBIN 31.3 pg (27.0-31.0); MEAN CORPUSCULAR HGB CONC 33.5 g/dL (32.0-36.0); MEAN CORPUSCULAR VOLUME 93.4 fL (81.0-99.0); MEAN PLATELET VOLUME 12.9 fL (7.9-10.8); RED BLOOD COUNT 3.64 10^6/uL (4.20-5.40); RED CELL DISTRIBUTION WIDTH 12.7 % (12.0-15.0); WHITE BLOOD COUNT 15.9 x10^3/uL (4.8-10.8)
[2020-03-08] MEDS: ACETAMINOPHEN 500 MG TABLET PO SCH ×2 (09:10→17:52)
[2020-03-08] MEDS: IBUPROFEN 800 MG TABLET PO SCH ×3 (09:11→22:26)
[2020-03-08] MEDS: DOCUSATE SODIUM 100 MG CAPSULE PO SCH ×2 (09:11→22:26)
--- NOTE | 2020-03-08 11:43 | PROVIDER PROGRESS NOTE ---
Subjective - Subjective Subjective: S: Bonding well with baby. Bleeding decreased and is light. Pain well controlled with oral medications. with some difficulty. Having some trouble getting baby to latch and stay latched but has been working closely with to improve. She was able to get some rest last night. She denies ROLON, visual disturbances, RUQ or epigastric pain. She denies body aches or chills and since her initial episode of fever she has not felt poorly again. Her is supportive at the bedside. O: BP 116/73, T 36.7, RR 16, HR 81 Labs: Hgb 13.6-->11.4 Hct 39.3-->34.0 PLT 145-->128 WBC 10.5-->15.9 Heart RRR w/o M/G/R, lungs CTAB, abdomen soft and nontender with fundus firm at U-1, pernieum intact, light lochia rubra, bilateral LE's no edema. A: 24yo -->P1 PPD#1 PP fever unexplained- responded well to initial measures of IV tylenol and Unasyn and has not had a fever since that time 2nd degree laceration- intact P: Continue routine pp care and medications. Continue support with nursing staff today. Evaluate for discharge home tomorrow. Pt verbalized understanding and agrees to above plan. She denies further questions or concerns at this time. Objective - Vital Signs/Intake & Output Vital Signs: Vital Signs x48h Temp Pulse Resp BP Pulse Ox 03/08/20 07:30 36.7 C 81 16 116/73 99 Intake & Output: Intake & Output 03/05/20 03/06/20 03/07/20 03/08/20 23:59 23:59 23:59 23:59 Intake Total 6100.004 7589.667 Output Total 1900 1825 Balance -600.000 826.667 - Lab Results Fish Bones: 03/08/20 06:04 03/06/20 16:45 Other Labs: Lab Results x24hrs 03/08/20 Range/Units 06:04 WBC 15.9 H (4.8-10.8) x10^3/uL RBC 3.64 L (4.20-5.40) 10^6/uL Hgb 11.4 L (12.0-16.0) g/dL Hct 34.0 L (37.0-47.0) % MCV 93.4 (81.0-99.0) fL MCH 31.3 H (27.0-31.0) pg MCHC 33.5 (32.0-36.0) g/dL RDW 12.7 (12.0-15.0) % Plt Count 128 L (130-450) 10^3/uL MPV 12.9 H (7.9-10.8) fL
[2020-03-09] MEDS: ACETAMINOPHEN 500 MG TABLET PO SCH ×2 (03:55→12:08)
[2020-03-09] MEDS: IBUPROFEN 800 MG TABLET PO SCH ×2 (03:56→11:20)
[2020-03-09] MEDS: DOCUSATE SODIUM 100 MG CAPSULE PO SCH (09:04)
[2020-03-09 09:20] VITALS: BP 122/74
--- NOTE | 2020-03-09 11:13 | DISCHARGE SUMMARY ---
Discharge Summary Condition at Discharge: Good Discharge Disposition: 01 Home, Self Care - HPI History of Present Illness: Admit Date 03/06/2020 Discharge Date 03/09/2020 Diagnosis on Admission: 1. A 24yo at 41.0 week intrauterine 2. GBS positive 3. Varicella non-immune Diagnosis on Discharge 1. A 24yo s/p spontaneous vaginal delivery on 03/07/2020 2. Normal recovery Brief History: She is a patient at [facility] who presented on 03/06/2020 for induction of labor for post dates . Her cervix was found to be 1/70/-3 and a balloon was used for cervical ripening. She as augmented with pitocin and spontaneously delivered a viable male infant named Saul. Apgars were 7 and 9- and 1 and 5 minutes respectively. EBL 400mL. The patient has a 2nd degree laceration that was repaired with 2-0 vicryl in usual fashion under sterile conditions. She has been doing well in her course. She is ambulating and tolerating a regular diet. She is urinating without difficulty and her lochia is normal. Her pain is well controlled with oral medications. Varicella vaccine ordered to receive at pharmacy of preference prior to one week f/u appt, and encouraged to receive second dose at 6wk . She will be discharged home today on day #2 without need for prescriptions. She intends to follow up with Midwifery at [facility] in 1, and 6 weeks for routine visit. She has been given precautions to call if she has any worsening fevers, chills, abdominal pain, increased bleeding or foul smelling vaginal lochia. - ALLERGIES Allergies/Adverse Reactions: Allergies Allergy/AdvReac Type Severity Reaction Status Date / Time No Known Drug Allergies Allergy Verified 10/13/18 21:52 - MEDICATIONS Home Medications: Ambulatory Orders Medication Instructions Recorded Confirmed diphenhydrAMINE [Benadryl] 25 - 50 mg PO Q4-6H PRN #30 capsule 10/05/18 hydrOXYzine pamoate [Hydroxyzine 1 - 2 tab PO Q6H PRN #20 capsule 10/06/18 Pamoate] predniSONE [Deltasone] 60 mg PO DAILY 5 Days tablet 10/06/18 Doxepin HCl 10 mg PO TID PRN #60 capsule 10/13/18 predniSONE [Deltasone] 40 mg PO DAILY #13 tablet 10/13/18 Penicillin V Potassium 500 mg PO Q6HR #40 tablet 11/23/18 - LABS Result Diagrams: 03/08/20 06:04 03/06/20 16:45
--- NOTE | 2020-03-09 11:15 | PROVIDER PROGRESS NOTE ---
Subjective - Prog Note Date Prog Note Date: 03/09/20 Prog Note Time: 11:13 - Subjective Pt reports feeling: Improved Subjective: Final Progress note S: Destiny is resting in bed, attempting to breastfeed baby Saul. is supp ortive at bedside. She reports has been a bit of a struggle but that they are improving now with each feed. She reports her bleeding as light and her bottom as only sore when she is sitting for prolonged periods. Urinating without difficulty. PO meds effective for pain management. O: Fundus firm lochia rubra perineum intact A: 24yo s/p on 03/07/2020, pp Day 2 Normal recovery P: Continue with routine care Evaluate for discharge home today Objective - Vital Signs/Intake & Output Vital Signs: Vital Signs x48h Temp Pulse Resp BP Pulse Ox 03/09/20 08:15 37.2 C 77 16 122/74 100 03/09/20 04:20 36.6 C 77 18 121/76 99 Intake & Output: Intake & Output 03/06/20 03/07/20 03/08/20 03/09/20 23:59 23:59 23:59 23:59 Intake Total 5376.571 9006.667 Output Total 1900 1825 Balance -600.000 826.667 - Lab Results Fish Bones: 03/08/20 06:04 03/06/20 16:45
--- NOTE | 2020-03-09 11:19 | Discharge Plan ---
Discharge Plan Problem Reviewed?: Yes Disposition: Home, Self Care Condition: Good Diet: Regular Activity Restrictions: No Restrictions Additional Instructions or Follow Up instructions: Follow up with midwifery at one and six weeks Varicella vaccine for one and six weeks as well No Smoking: If you smoke, Please STOP! Call for help. Follow-up with: Jeniffer Toledo ARNP [Provider Admit Priv/Credential] -
--- NOTE | 2020-03-09 14:00 | Labor Flowsheet ---
Labor Flowsheet Datetime Report Generated by CPN: 03/09/2020 14:00 Datetime: 03/09/2020 08:31 VITAL SIGNS NBP Sys/Swapna/Mean (mmHg): 122 : 74 : 84 Pulse: 77 Datetime: 03/08/2020 19:44 SpO2 (%): 100 Datetime: 03/07/2020 12:29 Stage of : Recovery Temperature (C): 37.4 Datetime: 03/07/2020 10:27 Temperature Route: Oral Datetime: 03/07/2020 09:31 Medication Comments: misoprostol 600mg BC Datetime: 03/07/2020 09:12 MEDICATIONS Pitocin (milliunits): Increased to @ 999 Datetime: 03/07/2020 09:06 UTERINE ACTIVITY Monitor Mode: External Frequency (min): 1-3 Quality: Strong Duration (sec): 30-90 Pattern: Normal: <= 5 Contractions in 10 Minutes Resting Tone (Palpate): Relaxed ASSESSMENT A Monitor Mode: External US FHR Baseline Rate : 135 Variability: Moderate 6-25 bpm Accelerations: 15X15 Decelerations: Variable Category: Category II Datetime: 03/07/2020 08:46 LaborFlag: Labor Datetime: 03/07/2020 08:45 FHR Baseline Changes: No Baseline Change Datetime: 03/07/2020 08:41 Patient Position/Activity: Semi-Fowlers STAGE 2 Pushing: Urge to Push; Refusing to Push; Pt States too Tired to Push Pushing Position: Pushing Lithotomy Pushing Progress: Descent with Pushing Datetime: 03/07/2020 08:14 Contraction Comments: toco reapplied Datetime: 03/07/2020 08:03 Antibiotics: Ampicillin IV 1 Gm Datetime: 03/07/2020 07:43 Epidural Procedure Other: Redose Anesthesia Comments: 1% lidocaine bolus Datetime: 03/07/2020 07:35 ANESTHESIA Anesthesia Plans: Epidural Datetime: 03/07/2020 07:34 Communication Comments: CERTIFIED NURSING ATTENDANT Cruz @ bedside Datetime: 03/07/2020 07:23 Position 'A': Left Occipital Anterior Datetime: 03/07/2020 06:27 Patient Care Comments: pt begins pushing on far left side Datetime: 03/07/2020 06:23 Stage 2 Comments: multiple unmeasured emesis during pushing Datetime: 03/07/2020 05:57 VAGINAL EXAM Dilatation (cm): 10.0 Station: 2 Vaginal Exam Comments: Complete after 1 active push Datetime: 03/07/2020 05:30 Resting Tone IUP (mmHg): 5 Intensity IUP (mmHg): 10-20 [place] Units (mmHg): 60 Datetime: 03/07/2020 05:13 Analgesics/Sedatives: Fentanyl (mcg) @ 50 Datetime: 03/07/2020 04:25 PATIENT CARE IV/Blood Work: New IV Bag Hung Datetime: 03/07/2020 04:24 Effacement (%): 90 Exam by: K. Burckhardt, RNC Datetime: 03/07/2020 02:20 Monitor Interventions for UA: IUPC Inserted Datetime: 03/07/2020 01:39 Antiemetics/Antacids: Zofran (mg) @ 4 Datetime: 03/07/2020 01:22 Pain Relief Measures: Epidural Given Datetime: 03/07/2020 01:19 Epidural Procedure: Completed Datetime: 03/07/2020 00:34 PAIN Pain Scale: 8 Datetime: 03/06/2020 23:00 Comments: lost trace at times to maternal movement and increasing discomfort. Datetime: 03/06/2020 22:56 Respirations: 22 Datetime: 03/06/2020 21:58 Anesthesia Level Check: T12 Datetime: 03/06/2020 21:55 Monitor Interventions for FHR: Ultrasound Adjusted Datetime: 03/06/2020 20:15 MATERNAL ASSESSMENT Level of Consciousness: Alert Headache: Denies Breath Sounds, Left: Clear and Equal Breath Sounds, Right: Clear and Equal Nausea/Vomiting: Denies RUQ Epigastric Pain: Denies Datetime: 03/06/2020 19:00 Oxygen Method: Room Air Datetime: 03/06/2020 18:40 I/O Interventions: Rhodes Cath Inserted Datetime: 03/06/2020 17:30 PROCEDURE TIME OUT Procedure Verify: Correct Patient Identity; Correct Side and Site are Marked; Accurate Procedure Co nsent Form; Agreement on Procedure to be Done; Correct Patient Position; Relevant Images and Results are Properly Labeled and Displayed; Addressed Need to Administer Antibiotics or Fluids for Irrigation ; Safety Precautions Based on Patient History or Medication Use Epidural Positioning: Sitting Datetime: 03/06/2020 16:59 Pain Assessment Comments: 7/10 Datetime: 03/06/2020 16:04 Pitocin Checklist: At Least 1 Acceleration of 15 bpm x 15 Seconds in 30 Minutes or Adequate Variabi lity; No More than 1 Late Deceleration Occurred in Past 30 Minutes; No More than 2 Variable Decelerat ions > 60 Seconds in Duration and decreasing >60 bpm in 30 minutes; No More than 5 Uterine Contractio ns in 10 Minutes for any 20 Minute Interval Datetime: 03/06/2020 15:42 Membranes Rupture Method: Artificial Amniotic Fluid Color: Clear Amniotic Fluid Amount: Small Amniotic Fluid Odor: Normal Vaginal Bleeding: None Cervix, Consistency: Soft Cervix, Position: Posterior Membrane Comments: possible high leak previous reported SROM, Datetime: 03/06/2020 15:40 COMMUNICATION Communication: Provider at Bedside Provider Notified (Name): Juany Graham CNM Notification Reason: Status Update; Status; Labor Status; Pain Datetime: 03/06/2020 11:10 Membrane Status: Ruptured Membranes Ruptured Date/Time: 03/06/2020 11:10 Datetime: 03/06/2020 10:59 Cervical Ripening Agents: Rhodes Balloon
== END 2020-03-09 13:45 | disposition home or self-care (01) | DRG 806 ==
LOC: WFO 07:16 → FBP 07:24 → WFO 09:06 → FBP 09:07
PROVIDERS: ADMIT Nurse Practitioner Obstetrics & Gynecology; ATTEND Nurse Practitioner Obstetrics & Gynecology
PROC: 0U7C7ZZ Dilation of Cervix, Via Natural or Artificial Opening (ICD-10-PCS; 2020-03-06)
PROC: 10H07YZ Insertion of Other Device into Products of Conception, Via Natural or Artificial Opening (ICD-10-PCS; 2020-03-06)
PROC: 10E0XZZ Delivery of Products of Conception, External Approach (ICD-10-PCS; principal; 2020-03-07)
PROC: 0KQM0ZZ Repair Perineum Muscle, Open Approach (ICD-10-PCS; 2020-03-07)
DX: O48.0 Post-term pregnancy (principal); O72.1 Other immediate postpartum hemorrhage; Z37.0 Single live birth; O86.4 Pyrexia of unknown origin following delivery; O70.1 Second degree perineal laceration during delivery; O99.824 Streptococcus B carrier state complicating childbirth; O62.0 Primary inadequate contractions; Z3A.41 41 weeks gestation of pregnancy
CPT/HCPCS: 36415; 80053; 82570; 84156; 84550; 85025; 85027; 86850; 86900; 86901; A9270; J0131; J2210; J2795; J7120

== ENCOUNTER 2020-03-10 10:17 | Outpatient (CLI) | payer OTHER ==
--- NOTE | 2020-03-10 14:19 | Labor Flowsheet ---
Labor Flowsheet Datetime Report Generated by CPN: 03/10/2020 14:19 Datetime: 03/09/2020 08:31 VITAL SIGNS NBP Sys/Swapna/Mean (mmHg): 122 : 74 : 84 Pulse: 77 Datetime: 03/08/2020 19:44 SpO2 (%): 100 Datetime: 03/07/2020 12:29 Stage of : Recovery Temperature (C): 37.4 Datetime: 03/07/2020 10:27 Temperature Route: Oral Datetime: 03/07/2020 09:31 Medication Comments: misoprostol 600mg BC Datetime: 03/07/2020 09:12 MEDICATIONS Pitocin (milliunits): Increased to @ 999 Datetime: 03/07/2020 09:06 UTERINE ACTIVITY Monitor Mode: External Frequency (min): 1-3 Quality: Strong Duration (sec): 30-90 Pattern: Normal: <= 5 Contractions in 10 Minutes Resting Tone (Palpate): Relaxed ASSESSMENT A Monitor Mode: External US FHR Baseline Rate : 135 Variability: Moderate 6-25 bpm Accelerations: 15X15 Decelerations: Variable Category: Category II Datetime: 03/07/2020 08:46 LaborFlag: Labor Datetime: 03/07/2020 08:45 FHR Baseline Changes: No Baseline Change Datetime: 03/07/2020 08:41 Patient Position/Activity: Semi-Fowlers STAGE 2 Pushing: Urge to Push; Refusing to Push; Pt States too Tired to Push Pushing Position: Pushing Lithotomy Pushing Progress: Descent with Pushing Datetime: 03/07/2020 08:14 Contraction Comments: toco reapplied Datetime: 03/07/2020 08:03 Antibiotics: Ampicillin IV 1 Gm Datetime: 03/07/2020 07:43 Epidural Procedure Other: Redose Anesthesia Comments: 1% lidocaine bolus Datetime: 03/07/2020 07:35 ANESTHESIA Anesthesia Plans: Epidural Datetime: 03/07/2020 07:34 Communication Comments: SECURITY SYSTEMS MANAGER Cruz @ bedside Datetime: 03/07/2020 07:23 Position 'A': Left Occipital Anterior Datetime: 03/07/2020 06:27 Patient Care Comments: pt begins pushing on far left side Datetime: 03/07/2020 06:23 Stage 2 Comments: multiple unmeasured emesis during pushing Datetime: 03/07/2020 05:57 VAGINAL EXAM Dilatation (cm): 10.0 Station: 2 Vaginal Exam Comments: Complete after 1 active push Datetime: 03/07/2020 05:30 Resting Tone IUP (mmHg): 5 Intensity IUP (mmHg): 10-20 [place] Units (mmHg): 60 Datetime: 03/07/2020 05:13 Analgesics/Sedatives: Fentanyl (mcg) @ 50 Datetime: 03/07/2020 04:25 PATIENT CARE IV/Blood Work: New IV Bag Hung Datetime: 03/07/2020 04:24 Effacement (%): 90 Exam by: K. Burckhardt, RNC Datetime: 03/07/2020 02:20 Monitor Interventions for UA: IUPC Inserted Datetime: 03/07/2020 01:39 Antiemetics/Antacids: Zofran (mg) @ 4 Datetime: 03/07/2020 01:22 Pain Relief Measures: Epidural Given Datetime: 03/07/2020 01:19 Epidural Procedure: Completed Datetime: 03/07/2020 00:34 PAIN Pain Scale: 8 Datetime: 03/06/2020 23:00 Comments: lost trace at times to maternal movement and increasing discomfort. Datetime: 03/06/2020 22:56 Respirations: 22 Datetime: 03/06/2020 21:58 Anesthesia Level Check: T12 Datetime: 03/06/2020 21:55 Monitor Interventions for FHR: Ultrasound Adjusted Datetime: 03/06/2020 20:15 MATERNAL ASSESSMENT Level of Consciousness: Alert Headache: Denies Breath Sounds, Left: Clear and Equal Breath Sounds, Right: Clear and Equal Nausea/Vomiting: Denies RUQ Epigastric Pain: Denies Datetime: 03/06/2020 19:00 Oxygen Method: Room Air Datetime: 03/06/2020 18:40 I/O Interventions: Rhodes Cath Inserted Datetime: 03/06/2020 17:30 PROCEDURE TIME OUT Procedure Verify: Correct Patient Identity; Correct Side and Site are Marked; Accurate Procedure Co nsent Form; Agreement on Procedure to be Done; Correct Patient Position; Relevant Images and Results are Properly Labeled and Displayed; Addressed Need to Administer Antibiotics or Fluids for Irrigation ; Safety Precautions Based on Patient History or Medication Use Epidural Positioning: Sitting Datetime: 03/06/2020 16:59 Pain Assessment Comments: 7/10 Datetime: 03/06/2020 16:04 Pitocin Checklist: At Least 1 Acceleration of 15 bpm x 15 Seconds in 30 Minutes or Adequate Variabi lity; No More than 1 Late Deceleration Occurred in Past 30 Minutes; No More than 2 Variable Decelerat ions > 60 Seconds in Duration and decreasing >60 bpm in 30 minutes; No More than 5 Uterine Contractio ns in 10 Minutes for any 20 Minute Interval Datetime: 03/06/2020 15:42 Membranes Rupture Method: Artificial Amniotic Fluid Color: Clear Amniotic Fluid Amount: Small Amniotic Fluid Odor: Normal Vaginal Bleeding: None Cervix, Consistency: Soft Cervix, Position: Posterior Membrane Comments: possible high leak previous reported SROM, Datetime: 03/06/2020 15:40 COMMUNICATION Communication: Provider at Bedside Provider Notified (Name): Juany Graham CNM Notification Reason: Status Update; Status; Labor Status; Pain Datetime: 03/06/2020 11:10 Membrane Status: Ruptured Membranes Ruptured Date/Time: 03/06/2020 11:10 Datetime: 03/06/2020 10:59 Cervical Ripening Agents: Rhodes Balloon
== END 2020-03-10 12:00 | disposition home or self-care (01) ==
LOC: WFO 10:17 → FBP 10:23 → WFO 12:00
PROVIDERS: ATTEND Nurse Practitioner Obstetrics & Gynecology
DX: O92.70 Unspecified disorders of lactation (principal)
CPT/HCPCS: 99403